=== PATIENT | female | born 2000 | race African-American/Black ===

== ENCOUNTER 2021-10-21 21:02 | Inpatient (IN) | payer OTHER, SELFPAY ==
[2021-10-21 21:15] VITALS: BP 123/68; PULSE 110; TEMP 36.7; O2SAT 97
[2021-10-21 21:46] VITALS: BMI 41.8
[2021-10-21] MEDS: hydrOXYzine HCL 50 MG TABLET PO (23:56)
--- NOTE | 2021-10-22 03:35 | PC.ADMIT ---
this is the first [facility] [place] behavioral health admission for this 20 year old female. was referred to M3 via [facility]. patient was a referral from [facility] medical floor s/p od on prescribed medication, luvox. nurse to nurse report done prior to admission. collateral information obtained prior to admission. patient signed a 3 day notice upon arrival to the unit. medications verified from her pharmacy, [facility] [place] as well as patients input. DX on [facility] intake: PTSD, OCD, BPD, DID. patient denies od as SI attempt ''I knew luvox would not kill me'' reports that prior to this admission that she had been in W5 at [facility] ''for 1 month'' states during that time she had been placed on 1:1 status as she had tied sheets around her neck, had started to cut self (old and new scarring noted on both forearms) with new superficial cuts noted on l forearm that does not require intervention. reports hx of cutting but states she had not engaged in behavior for ''a long time'' prior to incidents at [facility]. reports being called by her legal name is triggering and that she wants to be called ''Marlen'' reports having frequent dissociate episodes throughout the day. reports that she had 2 years not needing hospitalization and attributes this to a depo shot given monthly ''it helped me with SI thinking'' but reports not using anymore as ''I gained too much weight'' reports that she does not like mood stabilizers or antipsychotics as they ''make me worse'' has therapist and reports that her pcp prescribes medications. no drug/alcohol issues. no major medical issues noted.
--- NOTE | 2021-10-22 04:03 | PC.ADMIT ---
medication reconciliation with [facility]. concerta 18 mg po daily last picked up 10/16. 2. luvox er 200 mg in am. luvox ir 100 mg bedtime and pharmacy staff questioning new order to have ir in the am and er at . last picked up 10/20. this appears to have been a change while at [facility].
[2021-10-22 06:00] VITALS: BP 111/72; PULSE 90; RESP 16; TEMP 36.8; O2SAT 99
--- NOTE | 2021-10-22 10:26 | P.HPPS_ITS ---
HPI Date of Service: 10/22/21 Chief Complaint: ptsd,obsessive-compulsive disorder Sources of Information: patient interviewed, chart reviewed and crisis/core team assessment reviewed HPI Subjective Notes: 3 Day Narrative: Ms. Louis is a 20 year-old woman with hx of BPD, PTSD who was brought to [facility] ED after overdose on 10 to 20 tablets of fluvoxamine 100mg. Per ED records, pt given activated charcoal. She was admitted for observation on te lemetry unit, no changes in her QRS (82ms), no Qtc prolongation (411ms highest during observation on 10/18, last EKG 401ms), no seizures, no signs of serotonin syndrome, no electrolyte imbalances. Pt was noted to be alert and oriented throughout admission in ED and subsequent observation on telemetry. Pt was recently discharge from [facility] after a month long admission 10/15/2021 for suicidal ideation. On the unit, pt present as calm and cooperative. She minimizes events leading to this admission stating that she never said it was a suicide attempt. Pt does report that partner of past 7 years was worried about her safety. She states she does not know why she took extra lovenox. She states If I wanted to kill myself I would have taken something else. Pt reports hx of self harm behaviors not in context of depressed mood. She reports she has been sleeping and eating well. She adamantly denies suicidal ideation nor that overdose was with intent to end her life. She denies hx of VH/AH. 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 She has book of DBT with her and states she is practicing skills because at the other hospital they didn't let me go to groups. Past Psychiatric History: Inpatient:W5 09/17-10/15/2021; 07/08/21 W5; 07/01/21 W5; 08/24/2019 W5. OP: used to see Dr. Pérez at [facility]. Reports pending new provider. Therapist: Rylie Gutiérrez Medical Evaluation Reviewed: Hospitalist Sachi Pending Diagnostics Vital Signs (24Hr): Vital Signs - 24 hr 10/21/21 21:15 Temperature 98.1 F Pulse Rate 110 H Blood Pressure 123/68 Pulse Oximetry 97 Body Mass Index 41.8 Meds/Allergies Meds Home Medications Acetaminophen (Acetaminophen 325 Mg Tablet) 650 mg PO Q6H PRN PRN Reason: Headache/Pain Mild Scale (1-3) Al Hydroxide/Mg Hydroxide (Magnesium Hydrox/Alum Hydrox 30 Ml Oral.Susp) 30 ml PO Q6H PRN PRN Reason: Heartburn/Nausea Clonidine HCl (Clonidine Hcl 0.1 Mg Tablet) 0.1 mg PO TID PRN; Protocol PRN Reason: Anxiety Fluvoxamine Maleate (Fluvoxamine Maleate 50 Mg Tablet) 100 mg PO BEDTIME OLIVERIO Last Admin: 10/22/21 21:51 Dose: 100 mg Documented by: Hydroxyzine HCl (Hydroxyzine Hcl 25 Mg Tablet) 25 mg PO BEDTIME PRN PRN Reason: Anxiety Hydroxyzine HCl (Hydroxyzine Hcl 50 Mg Tablet) 50 mg PO Q6H PRN PRN Reason: Anxiety Last Admin: 10/22/21 21:56 Dose: 50 mg Documented by: Magnesium Hydroxide (Milk Of Magnesia 30 Ml Oral.Susp) 30 ml PO DAILY PRN PRN Reason: Constipation Nicotine Polacrilex (Nicotine Polacrilex 2 Mg Gum) 2 mg BUCCAL Q2H PRN PRN Reason: Nicotine Cravings Non-Formulary Medication (Fluvoxamine) 100 mg PO DAILY [facility] Non-Formulary Medication (Methylphenidate Hcl [Concerta]) 18 mg PO DAILY OLIVERIO Trazodone HCl (Trazodone Hcl 50 Mg Tablet) 50 mg PO BEDTIME PRN PRN Reason: Insomnia Allergies Allergies Allergy/AdvReac Type Severity Reaction Status Date / Time shellfish derived Allergy Intermediate Swelling Verified 10/22/21 00:38 [SHELLFISH DERIVED] tree nut [TREE NUT] Allergy Intermediate Swelling Verified 10/22/21 00:38 coconut Allergy Mild Rash Verified 10/22/21 06:57 grapefruit Allergy Mild Rash Verified 10/22/21 00:38 guava Allergy Mild Rash Verified 10/22/21 00:38 yves Allergy Mild Rash Verified 10/22/21 00:38 Mental Status Exam Mental Status Exam Narrative: Appearance: casually groomed, fair hygiene in NAD Behavior:cooperative psychomotor:no agitation or retardation noted Speech:clear, normal rate/rhythm/volume, spontaneous Thought process:linear Thought content:no signs of psychosis, future oriented hoping to spend time with partner soon Mood: good I've never said I was depressed Affect: bright, congruent SI:adamatly denies HI:none VH/AH:none Delusions:none Insight/judgment:poor x 2 Memory/cog: alert, oriented x 3. grossly intact to conversational testing Assessment & Plan Assessment & Plan (1) Borderline personality disorder: Status: Acute Code(s): F60.3 - Borderline personality disorder (2) Chronic post-traumatic stress disorder (PTSD): Status: Acute Code(s): F43.12 - Post-traumatic stress disorder, chronic Assessment and Plan: Ms. Louis is a 20 woman with hx of BPD, PTSD who was brought via EMS to [facility] after overdose on luvox about 20-30 tablets. Pt admitted medically for observation without any signs of EKG changes, or electrolyte imbalances, alert, and oriented throughout admission. Pt was recently discharge from [facility] after month long admission. Pt now denies that she ever reported that it was a suicide attempt nor that she is depressed. PLAN 1. Admit to M3, [facility], 15 minutes checks 2. restart medications 3. Obtain collateral information 4. Aftercare planning. Reason for continued inpatient stay Substantial Risk for: harm to self
[2021-10-22] MEDS: hydrOXYzine HCL 50 MG TABLET PO ×2 (15:58→21:56)
[2021-10-22 17:46] VITALS: BMI 41.7
[2021-10-22 21:45] VITALS: BP 107/56; PULSE 88; TEMP 36.6; O2SAT 100
[2021-10-22] MEDS: fluvoxaMINE Maleate 50 MG TABLET 100 MG PO (21:51)
[2021-10-23 07:40] LABS: Estimated Average Glucose 105 mg/dL; Hemoglobin A1c % 5.3 %
[2021-10-23 07:44] LABS: Cholesterol 180 mg/dL; HDL Cholesterol 40 mg/dL; LDL Cholesterol Calculated 122 mg/dl; Triglycerides 94 mg/dL
--- NOTE | 2021-10-23 09:57 | HO.PM.IMCN ---
History of Present Illness Data of Consult Service Date: 10/23/21 Primary Care Provider: Sanjana Matos NP HPI Reason for consult: medical evaluation 20 year-old woman obese with hx of? BPD, PTSD who was brought to [facility] ED after overdose on 10 to 20 tablets of fluvoxamine 100 mg pt treated with charcoal charcoal. No QTc prolongation, no seizures, no signs of serotonin syndrome, no electrolyte imbalances. She presently feels better, no acute medical complaints. Review of Systems Review of Systems: Gen: no fever Resp: no sob, no cough CV: no chest, no CHURCH, no leg edema GI: No n/v, no abd pain Neuro: No confusion Yes all other systems are reviewed and are negative PMFSH Pertinent family history: none reprted Social History Household Members: Significant Other Housing: Apartment Do you presently have visiting nurse or other home services: No Patient Tobacco Use Status: Never used Tobacco e-Cigarette/Vaping Use: Never Used Second Hand Smoke Exposure: No Use of substances other than those prescribed or required for medical reasons: Yes Currently Displaying Signs/Symptoms of Drug Intoxication Withdrawal: No Have you been hit, kicked, punched, or otherwise hurt by someone within the past year? If so, by whom?: No Do you feel safe in your current relationship?: Yes Is there a partner from a previous relationship who is making you feel unsafe now?: No Are you made to feel afraid or neglected: No Spiritual Healthcare Practices: ''I use crystals and smudge sticks at home'' Protestant Healthcare Practices: none identified Cultural Healthcare Practices: none identified Advance Directives: No Advance Directives Information Provided: Yes Advance Directives on File: No Do you have thoughts of harming others: None Do you have a plan to hurt others: No Plan Recently lost weight without trying: No How much weight loss: Not applicable Eating poorly because of decreased appetite: No Nutrition screen score: 0 Nutrition Risks: No Nutritional Risk Patient : No : No Poor oral hygiene: No Meds Allergies Allergy/AdvReac Type Severity Reaction Status Date / Time shellfish derived Allergy Intermediate Swelling Verified 10/22/21 00:38 [SHELLFISH DERIVED] tree nut [TREE NUT] Allergy Intermediate Swelling Verified 10/22/21 00:38 coconut Allergy Mild Rash Verified 10/22/21 06:57 grapefruit Allergy Mild Rash Verified 10/22/21 00:38 guava Allergy Mild Rash Verified 10/22/21 00:38 yves Allergy Mild Rash Verified 10/22/21 00:38 Active Medications: Current Medications Acetaminophen (Acetaminophen 325 Mg Tablet) 650 mg PO Q6H PRN PRN Reason: Headache/Pain Mild Scale (1-3) Al Hydroxide/Mg Hydroxide (Magnesium Hydrox/Alum Hydrox 30 Ml Oral.Susp) 30 ml PO Q6H PRN PRN Reason: Heartburn/Nausea Clonidine HCl (Clonidine Hcl 0.1 Mg Tablet) 0.1 mg PO TID PRN; Protocol PRN Reason: Anxiety Fluvoxamine Maleate (Fluvoxamine Maleate 50 Mg Tablet) 100 mg PO BEDTIME OLIVERIO Last Admin: 10/22/21 21:51 Dose: 100 mg Documented by: Hydroxyzine HCl (Hydroxyzine Hcl 25 Mg Tablet) 25 mg PO BEDTIME PRN PRN Reason: Anxiety Hydroxyzine HCl (Hydroxyzine Hcl 50 Mg Tablet) 50 mg PO Q6H PRN PRN Reason: Anxiety Last Admin: 10/22/21 21:56 Dose: 50 mg Documented by: Magnesium Hydroxide (Milk Of Magnesia 30 Ml Oral.Susp) 30 ml PO DAILY PRN PRN Reason: Constipation Nicotine Polacrilex (Nicotine Polacrilex 2 Mg Gum) 2 mg BUCCAL Q2H PRN PRN Reason: Nicotine Cravings Non-Formulary Medication (Fluvoxamine) 100 mg PO DAILY OLIVERIO Non-Formulary Medication (Methylphenidate Hcl [Concerta]) 18 mg PO DAILY OLIVERIO Trazodone HCl (Trazodone Hcl 50 Mg Tablet) 50 mg PO BEDTIME PRN PRN Reason: Insomnia Home Medications Medication Instructions Recorded Confirmed Last Taken Type Luvox 100 mg PO BEDTIME 10/21/21 10/21/21 10/17/21 20:00 History clonidine HCl 0.1 mg tablet 0.1 mg PO TID PRN 10/21/21 10/21/21 10/14/21 23:00 History fluvoxamine 100 mg 100 mg PO DAILY 10/21/21 10/21/21 10/18/21 09:00 History capsule,extended release 24 hr hydroxyzine HCl 50 mg tablet 50 mg PO Q6H PRN 10/21/21 10/21/21 10/18/21 23:00 History methylphenidate HCl 18 mg 18 mg PO QAM 10/21/21 10/21/21 10/15/21 09:00 History tablet,extended release 24 hr (Concerta) albuterol sulfate 90 mcg/actuation 2 puff INHALATION Q4H PRN 10/22/21 10/22/21 Unknown History aerosol inhaler Physical Exam Vital Signs and Narrative: Vital Signs: Last Vital Signs Temp 97.8 F 10/22/21 21:45 Pulse 88 10/22/21 21:45 Resp 16 10/22/21 06:00 BP 107/56 L 10/22/21 21:45 Pulse Ox 100 10/22/21 21:45 Body Mass Index 41.7 Const: Other: Constitutional: Alert, in no distress, overweight. Mental Status: Oriented to person, place and time. Eyes: Pupils are equal, round and reactive to light. Ear, Nose and Throat: Oropharynx clear, mucous membranes moist. Ears and nose without eformities. Respiratory: Clear to auscultation. No wheezing, rales or rhonchi. Cardiovascular: S1 S2 regular. No murmurs, rubs or gallops. Gastrointestinal: Abdomen soft, non-tender, non-distended. Normal bowel sounds.? Neurologic: Cranial nerves II-XII grossly intact. No focal neurological deficits. Moves all extremities spontaneously.? Skin: No rashes or lesions.? Musculoskeletal: No cyanosis or clubbing. Psychiatric: Normal mood and affect? Results Labs Labs: Laboratory Results - last 24 hr 10/23/21 10/23/21 07:03 07:03 Estimat Average Glucose 105 Hemoglobin A1c % 5.3 Triglycerides 94 Cholesterol 180 LDL Cholesterol, Calc 122 HDL Cholesterol 40 Assessment and Plan (1) Chronic post-traumatic stress disorder (PTSD): Status: Acute (2) Borderline personality disorder: Status: Acute with no signficant medical issues addmitted for Psychiatric treatment following overdose plan: Continue present Psych care, advise weight loss, monitor lipids
[2021-10-23 10:29] VITALS: BP 113/68; PULSE 83; RESP 16; TEMP 36.8; O2SAT 98
--- NOTE | 2021-10-23 12:30 | P.DS_ITS ---
DS: Providers Provider Date of Service: 10/23/21 Date of admission: 10/21/21 21:02 Primary care physician: Sanjana Matos NP Consults: 10/21/21 23:54 Consult to Hospitalist Routine Consulting Provider: Hospitalist Reason For Exam: H&P, from [facility] med floor DS: Diagnosis Discharge Diagnosis (1) Chronic post-traumatic stress disorder (PTSD): Status: Acute (2) Borderline personality disorder: Status: Acute DS: Medications Discharge Medications Home Medications: Home Medications Medication Instructions Recorded Confirmed Luvox 100 mg PO BEDTIME 10/21/21 10/21/21 clonidine HCl 0.1 mg tablet 0.1 mg PO TID PRN 10/21/21 10/21/21 fluvoxamine 100 mg 100 mg PO DAILY 10/21/21 10/21/21 capsule,extended release 24 hr hydroxyzine HCl 50 mg tablet 50 mg PO Q6H PRN 10/21/21 10/21/21 methylphenidate HCl 18 mg 18 mg PO QAM 10/21/21 10/21/21 tablet,extended release 24 hr (Concerta) albuterol sulfate 90 mcg/actuation 2 puff INHALATION Q4H PRN 10/22/21 10/22/21 aerosol inhaler Mental Status Exam Mental Status Exam Narrative: Appearance: casually groomed, fair hygiene in NAD Behavior:cooperative psychomotor:no agitation or retardation noted Speech:clear, normal rate/rhythm/volume, spontaneous Thought process:linear, logical Thought content:no signs of psychosis, future oriented hoping to spend time with partner soon Mood: fine Affect: bright, congruent SI:none HI:none VH/AH:none Delusions:none Data Data Completed and Pending Completed studies during hospitalization [Text1]: 10/23/21 10/23/21 07:03 07:03 Estimat Average Glucose 105 Hemoglobin A1c % 5.3 Triglycerides 94 Cholesterol 180 LDL Cholesterol, Calc 122 HDL Cholesterol 40 DS: Summary Hospital Course Hospital Course: su Olmedo 10/22 admission note: Ms. Louis is a 20 year-old woman with hx of? BPD, PTSD who was brought to [facility] ED after overdose on 10 to 20 tablets of fluvoxamine 100mg. Per ED records, pt given activated charcoal. She was admitted for observation on telemetry unit, no changes in her QRS (82ms), no Qtc prolongation (411ms highest during observation on 10/18, last EKG 401ms), no seizures, no signs of serotonin syndrome, no electrolyte imbalances. Pt was noted to be alert and oriented throughout admission in ED and subsequent observation on telemetry. Pt was recently discharge from [facility] after a month long admission 10/15/2021 for suicidal ideation. On the unit, pt present as calm and cooperative. She minimizes events leading to this admission stating that she never said it was a suicide attempt. Pt does report that partner of past 7 years was worried about her safety. She states she does not know why she took extra lovenox. She states If I wanted to kill myself I would have taken something else. Pt reports hx of self harm behaviors not in context of depressed mood. She reports she has been sleeping and eating well. She adamantly denies suicidal ideation nor that overdose was with intent to end her life. She denies hx of VH/AH. 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 She has book of DBT with her and states she is practicing skills because at the other hospital they didn't let me go to groups. Past Psychiatric History: Inpatient:W5 09/17-10/15/2021; 07/08/21 W5; 07/01/21 W5; 08/24/2019 W5. ? OP: used to see Dr. Pérez at [facility]. Reports pending new provider.? Therapist: Rylie Gutiérrez 10/23: pt had signed 3-day notice, which comes due tuesday. she has been sleeping as best she can, and has otherwise been resting. on interview with MD, pt presents with normal mental status and describes misunderstanding as the reason for her being here. she requests discharge and denies SI. she provides the name and number of her partner, ana rosa carpio [phone], for collateral and vouching. per GRAHAM, who contacted ms carpio, ms carpio is OK with patient's discharge (they live together) and will observe pt for concerning signs and seek help for the pt should the need arise again. pt was discharged to self care later in the day. Time Spent with Patient Time attestation: Total time spent providing and/or coordinating discharge services: Discharge Plan Discharge Patient Disposition: Home, Self-Care Discharge Diagnosis: Borderline Personality Disorder Referrals: Therapy - [facility] [Other] - 1 Week (Please follow up with your therapy appointment on Tuesday) [facility] [Other] - 1 Week Sanjana Matos NP [Primary Care Provider] - 1 Week Discharge Medications: Continued clonidine HCl 0.1 mg Tablet 0.1 mg PO TID PRN (Reason: Anxiety) RF: 0 hydroxyzine HCl 50 mg Tablet 50 mg PO Q6H PRN (Reason: Anxiety) RF: 0 methylphenidate HCl [Concerta] 18 mg Tablet Extended Release 24hr 18 mg PO QAM RF: 0 fluvoxamine 100 mg Capsule,Extended Release 24hr 100 mg PO DAILY RF: 0 Luvox 100 MG 100 mg PO BEDTIME RF: 0 albuterol sulfate 90 mcg/actuation Hfa Aerosol Inhaler 2 puff INHALATION Q4H PRN (Reason: Shortness Of Breath) RF: 0 Discharge Orders: Discharge Order (Routine); Ordered 10/23/21 Ordered By: Flakito Man Diet: advance to usual diet Activity on Discharge: As tolerated Stand Alone Forms: Patient Portal Discharge page Care Plan Goals: remain stable and safe in outpatient treatment setting Health Concerns: none Plan of Treatment: take medications as prescribed, attend appointments as scheduled Assessment: not at imminent risk of harm to self or others Discharge Date/Time: 10/23/21 13:14
== END 2021-10-23 13:14 | disposition home or self-care (01) | DRG 883 ==
PROVIDERS: Social Worker; Admitting Provider Psychiatry & Neurology Psychiatry; PCP Nurse Practitioner Family; Visit Provider Psychiatry & Neurology Psychiatry
DX: F60.3 Borderline personality disorder (principal); F43.12 Post-traumatic stress disorder, chronic; Z91.52 Personal history of nonsuicidal self-harm; Z79.899 Other long term (current) drug therapy
CPT/HCPCS: 36415; 80061; 83036

== ENCOUNTER 2023-02-19 14:00 | Emergency (ER) | payer OTHER, SELFPAY ==
--- NOTE | ~2023-02-19 | CT_ITS ---
EXAMINATION: CT HEAD WITHOUT CONTRAST CLINICAL INFORMATION: Altered mental status COMPARISON: None available. TECHNIQUE: Contiguous axial imaging was performed from the skull base to vertex without intravenous administration of contrast. This CT examination was performed using dose optimization techniques as appropriate, variously including the following: *Automated exposure control *Adjustment of mA and/or kV according to patient size (this includes techniques or standardized protocols for targeted exams where dose is matched to indication/reason for exam; i.e. extremities or head) *Use of iterative reconstruction technique DLP: 797 mGy-cm FINDINGS: There is no acute intra-axial, extra-axial bleed, masses or midline shift. There is no acute infarction in evolution. There is no edema. The lateral ventricles are symmetrical in size and configuration without enlargement. Bone windows reveal no calvarial abnormality bilateral paranasal sinuses are well-aerated with mild mucoperiosteal thickening bilateral ethmoid sinuses with air-fluid level in bilateral maxillary sinuses as well. The mastoid air cells are well-aerated. CT/CT head/brain wo IV con IMPRESSION: No acute intracranial process. Acute bilateral maxillary sinusitis and chronic bilateral ethmoid sinusitis.
[2023-02-19 14:10] VITALS: BP 134/92; BP 182/110; PULSE 95; RESP 16; TEMP 36.5; O2SAT 98; BMI 42.6
--- NOTE | 2023-02-19 14:26 | ECG_ITS ---
Test Reason : CP Blood Pressure : / mmHG Vent. Rate : 076 BPM Atrial Rate : 076 BPM P-R Int : 140 ms QRS Dur : 080 ms QT Int : 360 ms P-R-T Axes : 024 003 009 degrees QTc Int : 405 ms Normal sinus rhythm Minimal voltage criteria for LVH, may be normal variant ( R in aVL ) Borderline ECG No previous ECGs available Referred By: Luan Vega Electronically Signed By:MARIZA JACOBSON MD
--- NOTE | 2023-02-19 14:28 | ED.GENADULT ---
HPI - General Adult General Chief complaint: Altered Mental Status Stated complaint: CX PAIN Source: patient and EMS History of Present Illness HPI narrative: This is a 22 years old female was sent by the [facility] for medical evaluation. The patient has history of depression/SI she has history of asthma postural orthostatic tachycardia syndrome . She was sent here because ?mental status changes there is no fever whatsoever no vomiting no lethargy. Patient is awake and alert follow command she tells me how long will take Onset (ago): day(s) (1) Radiation: non-radiation Severity: mild Pain Consistency: intermittent Relieving factors: none Exacerbating factors: none Related Data Home Medications Medication Instructions Recorded Confirmed Luvox 100 mg PO BEDTIME 10/21/21 10/21/21 clonidine HCl 0.1 mg tablet 0.1 mg PO TID PRN Anxiety 10/21/21 10/21/21 fluvoxamine 100 mg 100 mg PO DAILY 10/21/21 10/21/21 capsule,extended release 24 hr hydroxyzine HCl 50 mg tablet 50 mg PO Q6H PRN Anxiety 10/21/21 10/21/21 methylphenidate HCl 18 mg 18 mg PO QAM 10/21/21 10/21/21 tablet,extended release 24 hr (Concerta) albuterol sulfate 90 mcg/actuation 2 puff inhalation Q4H PRN 10/22/21 10/22/21 aerosol inhaler Shortness Of Breath Allergies Allergy/AdvReac Type Severity Reaction Status Date / Time shellfish derived Allergy Intermediate Swelling Verified 10/22/21 00:38 [SHELLFISH DERIVED] tree nut [TREE NUT] Allergy Intermediate Swelling Verified 10/22/21 00:38 coconut Allergy Mild Rash Verified 10/22/21 06:57 grapefruit Allergy Mild Rash Verified 10/22/21 00:38 guava Allergy Mild Rash Verified 10/22/21 00:38 yves Allergy Mild Rash Verified 10/22/21 00:38 Review of Systems Constitutional: Constitutional: Denies fever(s) Gastrointestinal: Gastrointestinal: Denies diarrhea and Denies vomiting Psychiatric: Psychiatric: Reports depression PMFSH Past Medical History PMFSH Narrative: depression.POTS/she has a history of some mood disorder and dissociative personality disorder Social History Social History Household Members: Significant Other Housing: Apartment Do you presently have visiting nurse or other home services: No Alcohol intake: never Patient Tobacco Use Status: Never used Tobacco Smoked in Last 30 Days: No e-Cigarette/Vaping Use: Never Used Second Hand Smoke Exposure: No Use of substances other than those prescribed or required for medical reasons: No Advance Directives: Yes Advance Directives on File: Yes Advance Directives Date on File: 10/26/21 service: No Sexual orientation: Don't Know Physical Exam ED Vital Signs: Vital Signs - 24 hr 02/19/23 14:10 Temperature 97.7 F Pulse Rate 95 Respiratory Rate 16 Blood Pressure 134/92 H Pulse Oximetry 98 Oxygen Delivery Method Room Air BMI result Body Mass Index 42.6 Const Other: She looks well she is not toxic-appearing General: comfortable, no acute distress, well developed, alert, awake and Physically active Nutritional Appearance: well nourished [facility] Head: Yes normal to inspection General nose exam: Normal external nose present Face and sinus: Yes normal facial exam Mouth: Normal oral and palatal mucosa present Eyes Pupils: Pupils normal by confrontation EOM: EOMs intact bilaterally Neck Neck: Yes normal visual inspection and Yes full ROM Thyroid: Thyroid normal Chest Chest palpation & inspection: normal inspection of the chest Resp Effort & Inspection: normal respiratory effort Auscultation: clear to auscultation bilaterally Cardio Jugular venous distension: no JVD Rate: regular rate Rhythm: regular rhythm GI Inspection: Yes normal to inspection Palpation (GI): Soft to palpation, not firm, nontender and no guarding Auscultation: normal bowel sounds Skin General skin exam: no rashes or lesions noted, elasticity normal and turgor normal Lesions: no lesions Rashes: no rashes Neuro Cranial nerves: Yes CN's II-XII intact bilaterally and Yes Bilaterally intact EOM present Course Reevaluation(s) Reevaluation #1: PATIENT REMAINED HEMODYNAMICALLY STABLE WORKUP WAS COMPLETED AND NORMAL INCLUDING A CT/LABS/UA. I THINK IS VERY REASONABLE TO DISCHARGE THE PATIENT BACK TO [facility] SHE IS NEUROLOGICALLY INTACT NO EVIDENCE OF ENCEPHALITIS/MENINGITIS ACUTE MEDICAL CONDITION Time: 16:36 Medical Decision Making Medical Decision Making [facility] Narrative: Patient presented with altered mental status she is neurologically intact we get labs /EKG/ST-T Differential Diagnosis Differential Diagnoses: The differential diagnosis associated with the presentation includes Psychosis/anxiety Lab Data 02/19/23 14:49 02/19/23 14:49 Labs: Lab Results 02/19/23 02/19/23 02/19/23 Range/Units 14:49 14:49 14:49 WBC 8.0 (4.8-10.8) X10*3/uL RBC 4.85 (4.20-5.50) X10*6/uL Hgb 12.5 (12.0-16.0) g/dl Hct 37.9 (37.0-47.0) % MCV 78.1 L (80.0-98.0) fL MCH 25.8 L (27.0-33.0) pg MCHC 33.0 (31.0-35.0) g/dl RDW 15.0 (11.0-16.0) % Plt Count 242 (160-400) X10*3/uL MPV 11.2 (9.4-12.3) fL Immature Gran % (Auto) 0.3 (0.0-0.4) % Neut % (Auto) 60.9 (45-73) % Lymph % (Auto) 23.4 (20-40) % [place] % (Auto) 10.9 (2-11) % Eos % (Auto) 3.6 (0-4) % Baso % (Auto) 0.9 (0-2) % Lymph # (Auto) 1.9 (1.2-4.9) X10*3/uL [place] # (Auto) 0.9 (0.1-1.2) X10*3/uL Eos # (Auto) 0.3 (0.0-0.4) X10*3/uL Baso # (Auto) 0.1 (0.0-0.2) X10*3/uL Abs Immat Gran (auto) 0.02 (0.00-0.03) X10*3/uL Absolute Neuts (auto) 4.9 (2.0-8.3) x10*3/uL Absolute Nucleated RBC 0.000 (0.0-0.012) X10*3/uL Nucleated RBC % (auto) 0.0 (0.0-0.2) /100WBC Sodium 140 (135-145) mmol/L Potassium 3.9 (3.3-5.1) mmol/L Chloride 107 (96-108) mmol/L Carbon Dioxide 20 L (22-29) mmol/L Anion Gap 17 (12-20) BUN 8 L (9-16) mg/dL Creatinine 0.85 (0.5-1.4) mg/dL Estim Creat Clear Calc 135.6 Estimated GFR > 60 Random Glucose 102 (60-115) mg/dL Calcium 10.1 (8.4-10.2) mg/dL Total Bilirubin 0.4 (0.0-1.0) mg/dL AST 38 H (5-31) U/L ALT 23 (0-31) U/L Alkaline Phosphatase 57 (39-117) U/L Troponin I High Sens < 3.5 (<3.5-17.0) ng/L Total Protein 7.6 (6.5-8.0) g/dL Albumin 4.6 (3.5-5.0) g/dL Urine Color Urine Appearance Urine pH (5.0-9.0) Ur Specific [place] (1.005-1.025) Urine Protein (Neg-Trace) mg/dL Urine Glucose (UA) (Negative) mg/dL Urine Ketones (Negative) mg/dL Urine Blood (Negative) Urine Nitrite (Negative) Ur Leukocyte Esterase (Negative) Urine RBC (0-2) /HPF Urine WBC (0-5) /HPF Ur Squamous Epith Cells (0-2) /HPF Urine Bacteria (None Seen) Hyaline Casts (0-2) /LPF Urine Test (NEGATIVE) Urine Opiates Screen (Not Detect) Urine Fentanyl Screen (Not Detect) Ur Barbiturates Screen (Not Detect) Ur Phencyclidine Scrn (Not Detect) Ur Amphetamines Screen (Not Detect) U Benzodiazepines Scrn (Not Detect) Urine Cocaine Screen (Not Detect) U Marijuana (THC) Screen (Not Detect) 02/19/23 02/19/23 02/19/23 Range/Units 15:57 15:57 15:57 WBC (4.8-10.8) X10*3/uL RBC (4.20-5.50) X10*6/uL Hgb (12.0-16.0) g/dl Hct (37.0-47.0) % MCV (80.0-98.0) fL MCH (27.0-33.0) pg MCHC (31.0-35.0) g/dl RDW (11.0-16.0) % Plt Count (160-400) X10*3/uL MPV (9.4-12.3) fL Immature Gran % (Auto) (0.0-0.4) % Neut % (Auto) (45-73) % Lymph % (Auto) (20-40) % [place] % (Auto) (2-11) % Eos % (Auto) (0-4) % Baso % (Auto) (0-2) % Lymph # (Auto) (1.2-4.9) X10*3/uL [place] # (Auto) (0.1-1.2) X10*3/uL Eos # (Auto) (0.0-0.4) X10*3/uL Baso # (Auto) (0.0-0.2) X10*3/uL Abs Immat Gran (auto) (0.00-0.03) X10*3/uL Absolute Neuts (auto) (2.0-8.3) x10*3/uL Absolute Nucleated RBC (0.0-0.012) X10*3/uL Nucleated RBC % (auto) (0.0-0.2) /100WBC Sodium (135-145) mmol/L Potassium (3.3-5.1) mmol/L Chloride (96-108) mmol/L Carbon Dioxide (22-29) mmol/L Anion Gap (12-20) BUN (9-16) mg/dL Creatinine (0.5-1.4) mg/dL Estim Creat Clear Calc Estimated GFR Random Glucose (60-115) mg/dL Calcium (8.4-10.2) mg/dL Total Bilirubin (0.0-1.0) mg/dL AST (5-31) U/L ALT (0-31) U/L Alkaline Phosphatase (39-117) U/L Troponin I High Sens (<3.5-17.0) ng/L Total Protein (6.5-8.0) g/dL Albumin (3.5-5.0) g/dL Urine Color Yellow Urine Appearance Clear Urine pH 6.5 (5.0-9.0) Ur Specific [place] 1.010 (1.005-1.025) Urine Protein Negative (Neg-Trace) mg/dL Urine Glucose (UA) Negative (Negative) mg/dL Urine Ketones 15 (Negative) mg/dL Urine Blood Negative (Negative) Urine Nitrite Negative (Negative) Ur Leukocyte Esterase Negative (Negative) Urine RBC 0-2 (0-2) /HPF Urine WBC 0-5 (0-5) /HPF Ur Squamous Epith Cells 0-2 (0-2) /HPF Urine Bacteria None Seen (None Seen) Hyaline Casts 0-2 (0-2) /LPF Urine Test NEGATIVE (NEGATIVE) Urine Opiates Screen Not Detected (Not Detect) Urine Fentanyl Screen Not Detected (Not Detect) Ur Barbiturates Screen Not Detected (Not Detect) Ur Phencyclidine Scrn Not Detected (Not Detect) Ur Amphetamines Screen Not Detected (Not Detect) U Benzodiazepines Scrn Not Detected (Not Detect) Urine Cocaine Screen Not Detected (Not Detect) U Marijuana (THC) Screen POSITIVE H (Not Detect) Discharge Plan Discharge Clinical Impression: Altered mental status, Depression Patient Disposition: Xfer Psychiatric [facility]osp Instructions: Altered Mental Status (ED), Depression (ED) Additional Instructions: Take your medications as prescribed. If you were prescribed antibiotics today, it is important that you take your medication to their entirety, do not skip any doses, do not finish them early. Follow-up with your primary care provider this week. Return to the emergency department with new or worsening symptoms. Such as fevers, chills, chest pain, shortness of breath, nausea, vomiting, dizziness, headache, vision changes, lethargy In case of emergency call 911 Prescriptions: No Action clonidine HCl 0.1 mg Tablet 0.1 mg PO TID PRN (Reason: Anxiety) hydroxyzine HCl 50 mg Tablet 50 mg PO Q6H PRN (Reason: Anxiety) methylphenidate HCl [Concerta] 18 mg Tablet Extended Release 24hr 18 mg PO QAM fluvoxamine 100 mg Capsule,Extended Release 24hr 100 mg PO DAILY Rx Instructions: PATIENT REPORTS THAT SHE TAKES 200 MG DAILY IN AM Luvox 100 MG 100 mg PO BEDTIME albuterol sulfate 90 mcg/actuation Hfa Aerosol Inhaler 2 puff INHALATION Q4H PRN (Reason: Shortness Of Breath) Referrals: [facility] [Provider Group] - 2 days Rad Brice PA [Primary Care Provider] - 2 days
--- NOTE | 2023-02-19 14:36 | PC.NURSE ---
Patient discussing visual hallucinations she has. One named Reed will tell her to kill herself and when she tries to hurt herself the hallucination will tell her how stupid she looks. Patient states that she sees Reed in the hallway; patient does not seem to be afraid of this hallucination. Patient is also stating that she sees a portal at the end of her bed at [facility] stating its timmy like if you watch the OA. Patient is calm and cooperative with staff at this time.
[2023-02-19 14:53] LABS: MANUAL DIFF FLAG NO
[2023-02-19 15:02] LABS: Basophils Absolute Auto 0.1 X10*3/uL (0.0-0.2); Basophils Percent Auto 0.9 % (0-2); Eosinophils Absolute Auto 0.3 X10*3/uL (0.0-0.4); Eosinophils Percent Auto 3.6 % (0-4); Hematocrit 37.9 % (37.0-47.0); Hemoglobin 12.5 g/dl (12.0-16.0); Imm Gran Abs Auto 0.02 X10*3/uL (0.00-0.03); Imm Gran Pct Auto 0.3 % (0.0-0.4); Lymphocytes Absolute Auto 1.9 X10*3/uL (1.2-4.9); Lymphocytes Percent Auto 23.4 % (20-40); Mean Corpuscular Hemoglobin 25.8 pg (27.0-33.0); Mean Corpuscular Volume 78.1 fL (80.0-98.0); Mean Platelet Volume 11.2 fL (9.4-12.3); Monocytes Absolute Auto 0.9 X10*3/uL (0.1-1.2); Monocytes Percent Auto 10.9 % (2-11); Neutrophils Absolute Auto 4.9 x10*3/uL (2.0-8.3); Neutrophils Percent Auto 60.9 % (45-73); Platelet Count 242 X10*3/uL (160-400); Red Blood Count 4.85 X10*6/uL (4.20-5.50)
[2023-02-19 15:15] LABS: Alanine Aminotransferase 23 U/L (0-31); Albumin Level 4.6 g/dL (3.5-5.0); Alkaline Phosphatase 57 U/L (39-117); Anion Gap 17 (12-20); Aspartate Amino Transferase 38 U/L (5-31); Bilirubin Total 0.4 mg/dL (0.0-1.0); Blood Urea Nitrogen 8 mg/dL (9-16); Calcium 10.1 mg/dL (8.4-10.2); Carbon Dioxide 20 mmol/L (22-29); Chloride 107 mmol/L (96-108); Creatinine Clr Calc Pharmacy 135.6; Estimated Glomerular Filt Rate > 60; Glucose Random 102 mg/dL (60-115); Potassium 3.9 mmol/L (3.3-5.1); Sodium 140 mmol/L (135-145); Total Protein 7.6 g/dL (6.5-8.0)
[2023-02-19 15:25] LABS: Troponin-I High Sensitivity < 3.5 ng/L (<3.5-17.0)
[2023-02-19 16:07] LABS: Appearance Urine Clear; Color Urine Yellow; Glucose Urine UA Negative (Negative); Leukocyte Esterase Urine Negative (Negative); Nitrite Urine Negative (Negative); PH 6.5 (5.0-9.0); Urine Blood Negative (Negative); Urine Ketones 15 mg/dL (Negative); Urine Protein Negative (Neg-Trace)
[2023-02-19 16:09] LABS: Bacteria Urine None Seen (None Seen); Hyaline Casts Urine 0-2 /LPF (0-2); RBC Urine 0-2 /HPF (0-2); Squamous Epithelial Cell Urine 0-2 /HPF (0-2); UPreg QC Valid YES; Urine Pregnancy NEGATIVE (NEGATIVE); WBC Urine 0-5 /HPF (0-5)
[2023-02-19 16:25] LABS: Amphetamine Screen Urine Not Detected (Not Detect); Barbiturates, Urine Not Detected (Not Detect); Benzodiazepines Screen Urine Not Detected (Not Detect); Cannabinoid Screen Urine POSITIVE (Not Detect); Cocaine Screen Urine Not Detected (Not Detect); Fentanyl, urine Not Detected (Not Detect); Opiate Screen Urine Not Detected (Not Detect); Phencyclidine Screen Urine Not Detected (Not Detect)
--- NOTE | 2023-02-19 16:44 | PC.NURSE ---
Nurse to nurse given to Praveena at [facility]. Patient to return to facility.
--- NOTE | 2023-02-19 17:35 | PC.NURSE ---
Patient transferred back to [facility] after being medically cleared. Nurse to nurse previously called and documented above. Patient given discharge instructions and verbalized an understanding. Patient assisted out of department on stretcher by EMS.
== END 2023-02-19 17:33 ==
PROVIDERS: Emergency Provider Emergency Medicine; PCP Physician Assistant
DX: R41.82 Altered mental status, unspecified (principal); F32.A Depression, unspecified; Z79.899 Other long term (current) drug therapy; F43.12 Post-traumatic stress disorder, chronic; F12.90 Cannabis use, unspecified, uncomplicated; F60.3 Borderline personality disorder
CPT/HCPCS: 36415; 70450; 80053; 80307; 81001; 81025; 84484; 85025; 93005; 99285

== ENCOUNTER 2024-03-16 01:41 | Emergency (ER) | payer OTHER, SELFPAY ==
--- NOTE | 2024-03-16 01:46 | ED.CHESTPAIN ---
HPI - Chest Pain General Chief Complaint: General Medical Stated Complaint: not feeling well Time Seen by Provider: 03/16/24 01:46 Source: patient and EMS Mode of arrival: EMS Limitations: no limitations History of Present Illness HPI narrative: patient is currently at [facility], she describes feeling shakey, heart beating fast, face being numb for a few hours Onset (ago): hour(s) Timing of current episode: episodic Onset: during rest Risk Factors Coronary artery disease risk factors: none Related Data Home Medications ?Medication ?Instructions ?Recorded ?Confirmed Luvox 100 mg PO BEDTIME 10/21/21 10/21/21 clonidine HCl 0.1 mg tablet 0.1 mg PO TID PRN Anxiety 10/21/21 10/21/21 fluvoxamine 100 mg 100 mg PO DAILY 10/21/21 10/21/21 capsule,extended release 24 hr hydroxyzine HCl 50 mg tablet 50 mg PO Q6H PRN Anxiety 10/21/21 10/21/21 methylphenidate HCl 18 mg 18 mg PO QAM 10/21/21 10/21/21 tablet,extended release 24 hr (Concerta) albuterol sulfate 90 mcg/actuation 2 puff inhalation Q4H PRN 10/22/21 10/22/21 aerosol inhaler Shortness Of Breath Allergies Allergy/AdvReac Type Severity Reaction Status Date / Time shellfish derived Allergy Intermediate Swelling Verified 03/16/24 02:04 [SHELLFISH DERIVED] tree nut [TREE NUT] Allergy Intermediate Swelling Verified 03/16/24 02:04 coconut Allergy Mild Rash Verified 03/16/24 02:04 grapefruit Allergy Mild Rash Verified 03/16/24 02:04 guava Allergy Mild Rash Verified 03/16/24 02:04 yves Allergy Mild Rash Verified 03/16/24 02:04 Review of Systems Review of Systems: Yes all other systems are reviewed and are negative Neurologic: Denies Sensory deficit (Neuro) [facility] Social History Social History Household Members: Significant Other Housing: Apartment Do you presently have visiting nurse or other home services: No Alcohol intake: never Patient Tobacco Use Status: Never used Tobacco Smoked in Last 30 Days: No e-Cigarette/Vaping Use: Never Used Second Hand Smoke Exposure: No Use of substances other than those prescribed or required for medical reasons: No Advance Directives: Yes Advance Directives on File: Yes Advance Directives Date on File: 10/26/21 Patient : No service: No Sexual orientation: Don't Know Physical Exam Vital Signs: Vital Signs: Last Vital Signs Temp 98.2 F 03/16/24 04:40 Pulse 94 03/16/24 04:40 Resp 16 03/16/24 04:40 BP 101/65 03/16/24 04:40 Pulse Ox 96 03/16/24 04:40 O2 Del Method Room Air 03/16/24 04:40 BMI result Body Mass Index 42.3 Const: Other: flat affect Nutritional Appearance: obese Orientation/consciousness: oriented to person and patient oriented x3 Limitations: no limitations HEENT: Head: Yes normal to inspection Ears: external ears normal General nose exam: Normal external nose present Mouth: Normal oral and palatal mucosa present and oropharynx normal Throat: Yes posterior oropharynx normal Eyes: General: appearance normal, both eyes and all related structures Neck: Other: supple Neck: Yes normal visual inspection Chest: Chest palpation & inspection: normal inspection of the chest Resp: Auscultation: clear to auscultation bilaterally Cardio: Jugular venous distension: no JVD Rate: regular rate Rhythm: regular rhythm Heart sounds: S1 normal heart sound present and S2 normal heart sound present GI: Inspection: Yes normal to inspection Palpation (GI): Soft to palpation, nontender and No hepatosplenomegaly present Auscultation: normal bowel sounds : General: Yes no CVA tenderness Back/Spine/Pelvis: Back: no CVA tenderness Skin: Other: old cutting scars on all extremities Neuro: General: oriented to person and patient oriented x3 Cranial nerves: Yes CN's II-XII intact bilaterally Motor exam (neuro): 5/5 motor strength present throughout Sensory Exam: No Sensory deficit (Neuro) Extrem: General: Yes normal to inspection Psych: Other: flat affect Course Reevaluation(s) Reevaluation #1: no evidence of arrhythmia labs normal, likely anxiety or panic attack Time: 05:01 Medical Decision Making Differential Diagnosis Differential Diagnoses: The differential diagnosis associated with the presentation includes (arrhythmia, pericarditis, cardiac ischemia, anxiety, panic attack) Admission/Observation Consideration of admission/observation: Escalation of care including admission/observation considered (upon arrival patient considered for admission) Lab Data 03/16/24 02:11 03/16/24 02:11 Labs: Lab Results 03/16/24 03/16/24 Range/Units 02:11 04:00 WBC 12.3 H (4.8-10.8) X10*3/uL RBC 4.53 (4.20-5.50) X10*6/uL Hgb 10.7 L (12.0-16.0) g/dl Hct 33.8 L (37.0-47.0) % MCV 74.6 L (80.0-98.0) fL MCH 23.6 L (27.0-33.0) pg MCHC 31.7 (31.0-35.0) g/dl RDW 17.9 H (11.0-16.0) % Plt Count 441 H D (160-400) X10*3/uL MPV 10.9 (9.4-12.3) fL Immature Gran % (Auto) 0.2 (0.0-0.4) % Neut % (Auto) 60.8 (45-73) % Lymph % (Auto) 25.0 (20-40) % [place] % (Auto) 9.6 (2-11) % Eos % (Auto) 3.9 (0-4) % Baso % (Auto) 0.5 (0-2) % Lymph # (Auto) 3.1 (1.2-4.9) X10*3/uL [place] # (Auto) 1.2 (0.1-1.2) X10*3/uL Eos # (Auto) 0.5 H (0.0-0.4) X10*3/uL Baso # (Auto) 0.1 (0.0-0.2) X10*3/uL Abs Immat Gran (auto) 0.02 (0.00-0.03) X10*3/uL Absolute Neuts (auto) 7.5 (2.0-8.3) x10*3/uL Absolute Nucleated RBC 0.000 (0.0-0.012) X10*3/uL Nucleated RBC % (auto) 0.0 (0.0-0.2) /100WBC Sodium 141 (135-145) mmol/L Potassium 3.7 (3.3-5.1) mmol/L Chloride 107 (96-108) mmol/L Carbon Dioxide 25 (22-29) mmol/L Anion Gap 13 (12-20) BUN 12 (9-16) mg/dL Creatinine 0.86 (0.5-1.4) mg/dL Estim Creat Clear Calc 136.9 Estimated GFR > 60 Random Glucose 93 (60-115) mg/dL Calcium 10.4 H (8.4-10.2) mg/dL Urine Color Yellow Urine Appearance Clear Urine pH 6.0 (5.0-9.0) Ur Specific [place] 1.025 (1.005-1.025) Urine Protein Negative (Neg-Trace) mg/dL Urine Glucose (UA) Negative (Negative) mg/dL Urine Ketones Trace (Negative) mg/dL Urine Blood Negative (Negative) Urine Nitrite Negative (Negative) Ur Leukocyte Esterase Negative (Negative) Urine Test NEGATIVE (NEGATIVE) Independent Interpretation I performed an independent interpretation of an: EKG (sinus rate 98, no st or twave changes) Independent Historian Clinical information obtained from an independent historian. History obtained from or confirmed by: EMS Chronic Conditions Patient?s care impacted by: Other (psychiatric illness) Social Determinants Patient?s care significantly limited by Social Determinants of Health including: Inadequate housing, Low income and Unemployment Discharge Plan Discharge Clinical Impression: Anxiety Patient Disposition: Home, Self-Care Instructions: Anxiety (ED) Prescriptions: No Action clonidine HCl 0.1 mg Tablet 0.1 mg PO TID PRN (Reason: Anxiety) hydroxyzine HCl 50 mg Tablet 50 mg PO Q6H PRN (Reason: Anxiety) methylphenidate HCl [Concerta] 18 mg Tablet Extended Release 24hr 18 mg PO QAM fluvoxamine 100 mg Capsule,Extended Release 24hr 100 mg PO DAILY Rx Instructions: PATIENT REPORTS THAT SHE TAKES 200 MG DAILY IN AM Luvox 100 MG 100 mg PO BEDTIME albuterol sulfate 90 mcg/actuation Hfa Aerosol Inhaler 2 puff INHALATION Q4H PRN (Reason: Shortness Of Breath) Referrals: Physician,Unknown J [Primary Care Provider] - 1 week Print Language: Anguillan
--- NOTE | 2024-03-16 01:47 | ECG_ITS ---
Test Reason : TACHYCARDIA Blood Pressure : / mmHG Vent. Rate : 098 BPM Atrial Rate : 098 BPM P-R Int : 172 ms QRS Dur : 078 ms QT Int : 334 ms P-R-T Axes : 018 005 012 degrees QTc Int : 426 ms Normal sinus rhythm Minimal voltage criteria for LVH, may be normal variant ( R in aVL ) Borderline ECG When compared with ECG of 19-FEB-2023 14:38, No significant change was found Referred By: Gerald Monreal Electronically Signed By:EMELIA ABREU
[2024-03-16 01:48] VITALS: BP 105/76; PULSE 113; O2SAT 98
[2024-03-16 02:02] VITALS: BP 122/62; PULSE 117; RESP 16; O2SAT 100; BMI 42.3
[2024-03-16 02:04] VITALS: BP 122/62; PULSE 117; RESP 16; O2SAT 100
[2024-03-16 03:53] LABS: Basophils Absolute Auto 0.1 X10*3/uL (0.0-0.2); Basophils Percent Auto 0.5 % (0-2); Eosinophils Absolute Auto 0.5 X10*3/uL (0.0-0.4); Eosinophils Percent Auto 3.9 % (0-4); Hematocrit 33.8 % (37.0-47.0); Hemoglobin 10.7 g/dl (12.0-16.0); Imm Gran Abs Auto 0.02 X10*3/uL (0.00-0.03); Imm Gran Pct Auto 0.2 % (0.0-0.4); Lymphocytes Absolute Auto 3.1 X10*3/uL (1.2-4.9); MANUAL DIFF FLAG NO; Mean Corpuscular HGB Conc 31.7 g/dl (31.0-35.0); Mean Corpuscular Hemoglobin 23.6 pg (27.0-33.0); Mean Corpuscular Volume 74.6 fL (80.0-98.0); Mean Platelet Volume 10.9 fL (9.4-12.3); Monocytes Absolute Auto 1.2 X10*3/uL (0.1-1.2); Monocytes Percent Auto 9.6 % (2-11); Neutrophils Absolute Auto 7.5 x10*3/uL (2.0-8.3); Neutrophils Percent Auto 60.8 % (45-73); Platelet Count 441 X10*3/uL (160-400); Red Blood Count 4.53 X10*6/uL (4.20-5.50); Red Cell Distribution Width 17.9 % (11.0-16.0); White Blood Count 12.3 X10*3/uL (4.8-10.8)
[2024-03-16 04:07] LABS: Anion Gap 13 (12-20); Blood Urea Nitrogen 12 mg/dL (9-16); Calcium 10.4 mg/dL (8.4-10.2); Carbon Dioxide 25 mmol/L (22-29); Chloride 107 mmol/L (96-108); Creatinine Clr Calc Pharmacy 136.9; Estimated Glomerular Filt Rate > 60; Glucose Random 93 mg/dL (60-115); Potassium 3.7 mmol/L (3.3-5.1); Sodium 141 mmol/L (135-145)
[2024-03-16 04:10] LABS: Appearance Urine Clear; Color Urine Yellow; Glucose Urine UA Negative (Negative); Leukocyte Esterase Urine Negative (Negative); Nitrite Urine Negative (Negative); Specific Gravity - Urine 1.025 (1.005-1.025); Urine Blood Negative (Negative); Urine Ketones Trace mg/dL (Negative); Urine Protein Negative (Neg-Trace)
[2024-03-16 04:11] LABS: UPreg QC Valid YES; Urine Pregnancy NEGATIVE (NEGATIVE)
[2024-03-16 04:40] VITALS: BP 101/65; PULSE 94; RESP 16; TEMP 36.8; O2SAT 96
--- NOTE | 2024-03-16 05:12 | PC.NURSE ---
Spoke with staff from [facility] to give updates and inform them of discharge. Ambulance is being booked at this time.
[2024-03-16 06:00] VITALS: BP 127/84; PULSE 99; RESP 16; TEMP 36.8; O2SAT 99
[2024-03-16 06:44] VITALS: BP 127/84; PULSE 99; RESP 16; TEMP 36.8; O2SAT 99
== END 2024-03-16 06:46 | disposition home or self-care (01) ==
PROVIDERS: Emergency Provider Emergency Medicine
DX: F41.9 Anxiety disorder, unspecified (principal)
CPT/HCPCS: 36415; 80048; 81003; 81025; 85025; 93005; 99283; 99284

== ENCOUNTER → 2024-03-16 01:47 | Outpatient (BNV) | payer OTHER, SELFPAY | PROVIDERS: Emergency Provider Emergency Medicine; Visit Provider Internal Medicine | DX: R00.0 Tachycardia, unspecified (principal) | CPT/HCPCS: 93010 ==